=== PATIENT | female | born 1935 | race Caucasian/White ===

== ENCOUNTER 2019-05-11 13:17 | Outpatient (CLI) | payer MEDICARE ==
--- NOTE | 2019-05-11 18:23 | RAD ---
PELVIS 05/11/19 An AP view of the pelvis plus spot view of the right hip was obtained. Comparison was made with the lumbar spine film of 03/18/12. No bony abnormalities of concern were seen in the pelvis. The SI joints were symmetrical with no scle rosis or obvious erosion. The symphysis shows no widening or off-set. There has been a right hip arth roplasty. The appliance appears in expected position. There is a little lucency around the femoral ne ck and head component of the screw. IMPRESSION: No acute bony finding. POS: HOME
== END 2019-05-11 13:18 | disposition home or self-care (01) ==
LOC: BURRAD 13:17
PROVIDERS: ATTEND Family Medicine
DX: M53.3 Sacrococcygeal disorders, not elsewhere classified (principal)
CPT/HCPCS: 72170

== ENCOUNTER 2020-07-11 11:23 | Outpatient (CLI) | payer MEDICARE ==
--- NOTE | 2020-07-11 15:36 | RAD ---
LEFT HUMERUS 2 VIEWS: DATE: 07/11/2020. FINDINGS: No fracture or area of bony destruction was seen. The humerus appears normal for age. There is no f inding of concern around the shoulder. IMPRESSION: No acute finding. POS: HOME
== END 2020-07-11 11:24 | disposition home or self-care (01) ==
LOC: BURRAD 11:23
PROVIDERS: ATTEND Family Medicine
DX: M79.622 Pain in left upper arm (principal)

== ENCOUNTER 2021-08-20 10:17 | Emergency (ER) | payer MEDICARE ==
[2021-08-20 23:05] LABS: SARS-CoV-2 PCR by NAA DETECTED (NotDetected)
== END 2021-08-20 11:11 | disposition home or self-care (01) ==
LOC: BURERS 10:17
DX: U07.1 COVID-19 (principal); E78.5 Hyperlipidemia, unspecified; E78.00 Pure hypercholesterolemia, unspecified; I10 Essential (primary) hypertension
CPT/HCPCS: U0003; U0005; 99283

== ENCOUNTER 2021-12-27 06:34 | Emergency (ER) | payer OTHER, MEDICARE ==
[2021-12-27 07:05] LABS: #Basophils 0.1 thou/uL (0.0-0.2); #Eosinphils 0.2 thou/uL (0.0-0.7); #Lymphocytes 1.7 thou/uL (1.20-3.40); #Monocytes 0.3 thou/uL (0.11-0.59); #Neutrophils 3.1 thou/uL (1.40-6.50); %Basophils 0.9 % (0.0-1.0); %Eosinophils 4.2 % (0.0-10.0); %Lymphocytes 31.9 % (21.0-51.0); %Monocytes 5.5 % (0.0-10.0); %Neutrophils 57.4 % (42.0-75.0); Hemoglobin 13.4 g/dL (12.0-16.0); Mean Corpuscular HGB CONC 31.7 g/dL (32.0-36.0); Mean Corpuscular Hemoglobin 26.7 pg (27.0-31.0); Mean Corpuscular Volume 84.3 fL (78.0-98.0); Mean Platelet Volume 6.1 fL (7.4-10.4); Platelet Count 253 thou/uL (130-400); RBC Distribution Width 12.7 % (11.5-14.5); White Blood Cell (WBC) Count 5.4 thou/uL (4.8-10.8)
[2021-12-27 07:13] LABS: Prothrombin Time 13.4 sec (12.0-14.7)
[2021-12-27 07:22] LABS: ALT (SGPT) 14 U/L (8-55); AST (SGOT) 20 U/L (5-34); Albumin 4.1 g/dL (3.4-4.8); Alkaline Phosphatase 113 U/L (40-110); Anion Gap 16 mmol/L (10-20); BUN (Urea Nitrogen) 11 mg/dL (9.8-20.1); Bilirubin, Total 0.4 mg/dL (0.2-1.2); Calc. Creatinine Clearance 0 mL/min (70-130); Calcium 9.3 mg/dL (7.8-10.44); Carbon Dioxide 24 mmol/L (23-31); Chloride 108 mmol/L (98-107); Globulin 2.7 g/dL (2.4-3.5); Glucose 126 mg/dL (83-110); Potassium 3.3 mmol/L (3.5-5.1); Protein, Total 6.8 g/dL (5.8-8.1); Sodium 145 mmol/L (136-145)
[2021-12-27] MEDS ORDERED: Lidocaine 1% (PF) 30 ML VIAL ONE (08:01)
[2021-12-27] MEDS ORDERED: Boostrix 0.5 ML (Tdap) VIAL ONE (08:54)
== END 2021-12-27 09:00 | disposition home or self-care (01) ==
LOC: BURERS 06:34
DX: S62.615A Displaced fracture of proximal phalanx of left ring finger, initial encounter for closed fracture (principal); S62.617A Displaced fracture of proximal phalanx of left little finger, initial encounter for closed fracture; S00.81XA Abrasion of other part of head, initial encounter; I10 Essential (primary) hypertension; E78.5 Hyperlipidemia, unspecified; E78.00 Pure hypercholesterolemia, unspecified; W01.10XA Fall on same level from slipping, tripping and stumbling with subsequent striking against unspecified object, initial encounter; Z23 Encounter for immunization
CPT/HCPCS: 26725; 36415; 70450; 70486; 80053; 85025; 85610; 90715; J2001

== ENCOUNTER 2022-01-29 13:58 | Emergency (ER) | payer MEDICARE ==
[2022-01-29] MEDS ORDERED: Iopamidol 370 76% 100 ML VIAL FS ONE (13:59)
[2022-01-29] MEDS ORDERED: Aspirin Chewable 81 MG TAB ONE (14:15)
[2022-01-29 14:16] LABS: #Basophils 0.1 thou/uL (0.0-0.2); #Eosinphils 0.3 thou/uL (0.0-0.7); #Lymphocytes 2.2 thou/uL (1.20-3.40); #Monocytes 0.3 thou/uL (0.11-0.59); #Neutrophils 3.7 thou/uL (1.40-6.50); %Eosinophils 4.5 % (0.0-10.0); %Lymphocytes 33.9 % (21.0-51.0); %Monocytes 5.1 % (0.0-10.0); %Neutrophils 55.6 % (42.0-75.0); Hemoglobin 13.4 g/dL (12.0-16.0); Mean Corpuscular HGB CONC 31.8 g/dL (32.0-36.0); Mean Corpuscular Hemoglobin 26.7 pg (27.0-31.0); Mean Corpuscular Volume 84.1 fL (78.0-98.0); Mean Platelet Volume 7.6 fL (7.4-10.4); Platelet Count 251 thou/uL (130-400); RBC Distribution Width 14.3 % (11.5-14.5); White Blood Cell (WBC) Count 6.6 thou/uL (4.8-10.8)
[2022-01-29 14:48] LABS: ALT (SGPT) 13 U/L (8-55); AST (SGOT) 23 U/L (5-34); Albumin 4.3 g/dL (3.4-4.8); Alkaline Phosphatase 114 U/L (40-110); Anion Gap 16 mmol/L (10-20); BUN (Urea Nitrogen) 13 mg/dL (9.8-20.1); Bilirubin, Total 0.4 mg/dL (0.2-1.2); Calc. Creatinine Clearance 0 mL/min (70-130); Calcium 9.5 mg/dL (7.8-10.44); Carbon Dioxide 25 mmol/L (23-31); Chloride 106 mmol/L (98-107); Globulin 2.5 g/dL (2.4-3.5); Glucose 105 mg/dL (83-110); Potassium 4.2 mmol/L (3.5-5.1); Protein, Total 6.8 g/dL (5.8-8.1); Sodium 143 mmol/L (136-145)
[2022-01-29] MEDS ORDERED: Morphine 4 MG/ML VIAL ONE (14:53)
== END 2022-01-29 18:20 | disposition home or self-care (01) ==
LOC: BURERS 13:58
DX: S22.32XA Fracture of one rib, left side, initial encounter for closed fracture (principal); I10 Essential (primary) hypertension; E78.5 Hyperlipidemia, unspecified; E78.00 Pure hypercholesterolemia, unspecified; X58.XXXA Exposure to other specified factors, initial encounter; Z79.899 Other long term (current) drug therapy
CPT/HCPCS: 71045; 71250; 74160; 80053; 83880; 84484; 85025; 93005; 96374; J2270; Q9967